=== PATIENT | female | born 1995 | race Caucasian/White ===

== ENCOUNTER 2019-06-26 11:35 | Inpatient (IN) ==
[2019-06-26] MEDS: LACTATED RINGERS 1,000 ML IV SCH ×2 (12:59→15:58)
[2019-06-26 13:32] LABS: Apearance,Urine Slightly Hazy (Clear); Bacteria,Urine Occasional /HPF (Few); Bilirubin,Urine Negative (Negative); Blood, Urine Negative (Negative); Glucose,Urine (UA) Negative (Negative); Ketones,Urine 5 mg/dL (Negative); Mucus,Urine Many /LPF (Occasional); Nitrite,Urine Negative (Negative); Protein,Urine 30 MG/DL; RBC,Urine 4 /HPF (0-4); Squamous Epithelial Cell,Urine Occasional /HPF (0-10); Urine Color Yellow (Yellow); Urine Specific Gravity 1.024 (1.001-1.035); Urine Urobilinogen < 2.0 EU/DL (0.2-1.0); WBC,Urine 1 /HPF (0-6)
[2019-06-26] MEDS ORDERED: NIFEdipine 10 MG CAPSULE PO ONE (13:41)
[2019-06-26] MEDS ORDERED: BETAMETH SODIUM PHOS/ACETATE 30 MG/5 ML VIAL IM SCH (14:00)
[2019-06-26 14:03] LABS: Basophils % 0.2 % (0.0-0.8); Eosinophils # 0.1 10*3/uL (0.0-0.87); Hematocrit 33.6 VOL% (35.7-47.0); Hemoglobin 10.8 GM/DL (12.0-16.0); Immature Granulocytes % 0.7 %; Immature Granulocytes Absolute 0.07 #; Lymphocytes # 2.3 10*3/uL (1.4-4.0); Mean Corpuscular HGB Conc 32.1 GM/DL (32-36); Mean Corpuscular Volume 91.1 FL (87-102); Mean Platelet Volume 9.4 FL (9.6-12.0); Monocytes % 7.8 % (1.7-12.7); Neutrophils % 67.3 % (38.7-73.9); Platelet Count 393 T/CUMM (130-400); Red Blood Count 3.69 MC/CUMM (3.8-5.5); Red Cell Distribution Width 13.6 % (9.3-17.3); White Blood Count 10.2 T/CUMM (4-12)
[2019-06-26 14:21] LABS: Alanine Aminotransferase 15 U/L (13-56); Albumin 2.5 G/DL (3.4-5.0); Alkaline Phosphatase 93 U/L (45-117); Aspartate Amino Transferase 11 U/L (0-37); Bilirubin,Total < 0.39 MG/DL (0.2-1.0); Blood Urea Nitrogen 5 MG/DL (7-18); Calcium 9.1 MG/DL (8.5-10.1); Glucose 87 MG/DL (74-106); Osmolality,Calculated 278.1 MOS/KG (273-304); Total Protein 6.4 G/DL (6.4-8.3); Uric Acid 5.4 MG/DL (2.6-6.0)
[2019-06-26 14:24] LABS: INR 0.9; PT Patient Result 9.9 SECS; Partial Thromboplastin Time 26.1 SECS (0-40)
[2019-06-26] MEDS ORDERED: ceFAZolin 3,000 MG in SYRINGE 1 EACH IV ONE (17:08)
[2019-06-26] MEDS ORDERED: FAMOTIDINE 20 MG/2 ML VIAL IV ONE (17:08)
[2019-06-26] MEDS ORDERED: CITRIC ACID/SODIUM CITRATE 30 ML UDCUP PO ONE (17:08)
[2019-06-26] MEDS ORDERED: MAGNESIUM SULF RIDER 100 ML IV ONE ×2 (17:11→17:20)
[2019-06-26] MEDS ORDERED: MAGNESIUM SULF DRIP 40 GM/1,000 ML ML IV ONE (17:11)
[2019-06-26] MEDS ORDERED: MAGNESIUM SULF DRIP 40 GM/1,000 ML ML IV SCH (17:30)
[2019-06-26] MEDS ORDERED: LACTATED RINGERS 1,000 ML IV SCH (17:30)
[2019-06-26] MEDS: AMPICILLIN INJ 2,000 MG in SODIUM CHLORIDE 0.9% 100 ML IV SCH ×2 (17:50→23:10)
[2019-06-26] MEDS ORDERED: NIFEdipine 10 MG CAPSULE PO SCH (18:00)
[2019-06-26 18:19] LABS: Apearance,Urine CLEAR (Clear); Bilirubin,Urine Negative (Negative); Blood, Urine Negative (Negative); Glucose,Urine (UA) Negative (Negative); Ketones,Urine 20 mg/dL (Negative); Mucus,Urine Occasional /LPF (Occasional); Nitrite,Urine Negative (Negative); Protein,Urine Negative; RBC,Urine <1 /HPF (0-4); Squamous Epithelial Cell,Urine Occasional /HPF (0-10); Urine Color Straw (Yellow); Urine Urobilinogen < 2.0 EU/DL (0.2-1.0)
[2019-06-26] MEDS ORDERED: ONDANSETRON 4 MG/2 ML VIAL IV PRN (21:04)
[2019-06-26] MEDS: BUTORPHANOL 2 MG/ML VIAL IV PRN (21:18)
[2019-06-27] MEDS: BUTORPHANOL 2 MG/ML VIAL IV PRN (00:46)
[2019-06-27] MEDS ORDERED: BETAMETH SODIUM PHOS/ACETATE 30 MG/5 ML VIAL IM SCH (02:15)
[2019-06-27] MEDS: LACTATED RINGERS 1,000 ML IV SCH (02:44)
[2019-06-27] MEDS: AMPICILLIN INJ 2,000 MG in SODIUM CHLORIDE 0.9% 100 ML IV SCH (04:56)
[2019-06-27] MEDS ORDERED: OXYTOCIN/LR 20 UNIT/1,000 ML BAG IV ONE ×2 (08:14→10:00)
[2019-06-27] MEDS ORDERED: CITRIC ACID/SODIUM CITRATE 30 ML UDCUP PO ONE (08:30)
[2019-06-27] MEDS ORDERED: FAMOTIDINE 20 MG/2 ML VIAL IV ONE (08:30)
[2019-06-27] MEDS ORDERED: ceFAZolin 3,000 MG in SYRINGE 1 EACH IV ONE (08:30)
[2019-06-27] MEDS ORDERED: ceFAZolin 1,000 MG in SYRINGE 1 EACH IV SCH (10:00)
[2019-06-27] MEDS ORDERED: LACTATED RINGERS 1,000 ML IV SCH (10:00)
[2019-06-27] MEDS ORDERED: SIMETHICONE CHEW 80 MG TABLET PO PRN (10:00)
[2019-06-27] MEDS ORDERED: ONDANSETRON 4 MG/2 ML VIAL IV PRN (10:00)
[2019-06-27] MEDS ORDERED: ACETAMINOPHEN 325 MG TABLET PO PRN (10:00)
[2019-06-27] MEDS ORDERED: RHO(D) IMMUNE GLOBULIN 300 MCG SYRINGE IM ONE (10:00)
[2019-06-27] MEDS ORDERED: MORPHINE 10 MG/10 ML VIAL ONE (10:54)
[2019-06-27] MEDS ORDERED: BUPIVACAINE 0.5% 50 ML VIAL ONE (10:55)
[2019-06-27] MEDS ORDERED: EPINEPHrine 1 MG/ML VIAL ONE (10:55)
[2019-06-27] MEDS ORDERED: BUPIVACAINE SPINAL 0.75% 2 ML AMP SPINAL ONE (10:55)
[2019-06-27] MEDS ORDERED: LACTATED RINGERS 1,000 ML IV ONE (10:56)
[2019-06-27] MEDS ORDERED: DEXAMETHASONE 4 MG/1 ML VIAL ONE (10:56)
[2019-06-27] MEDS ORDERED: ONDANSETRON 4 MG/2 ML VIAL ONE (10:56)
[2019-06-27] MEDS ORDERED: LIDOCAINE 1% 5 ML VIAL ONE (10:56)
[2019-06-27] MEDS ORDERED: PHENYLEPHRINE 1 MG/10 ML SYRINGE IV ONE (10:56)
[2019-06-27] MEDS: ceFAZolin 1,000 MG in SYRINGE 1 EACH IV SCH (18:31)
[2019-06-27 19:26] LABS: Basophils % 0.1 % (0.0-0.8); Hematocrit 28.4 VOL% (35.7-47.0); Hemoglobin 9.3 GM/DL (12.0-16.0); Immature Granulocytes % 1.2 %; Immature Granulocytes Absolute 0.21 #; Lymphocytes # 1.6 10*3/uL (1.4-4.0); Lymphocytes % 9.3 % (21.3-54.2); Mean Corpuscular HGB Conc 32.7 GM/DL (32-36); Mean Corpuscular Volume 91.6 FL (87-102); Mean Platelet Volume 9.9 FL (9.6-12.0); Monocytes % 7.3 % (1.7-12.7); Neutrophils % 82.1 % (38.7-73.9); Platelet Count 414 T/CUMM (130-400)
[2019-06-27 19:28] LABS: White Blood Count 17.6 T/CUMM (4-12)
[2019-06-27] MEDS: DOCUSATE SODIUM 100 MG CAPSULE PO SCH (21:44)
[2019-06-28] MEDS: ceFAZolin 1,000 MG in SYRINGE 1 EACH IV SCH (01:51)
[2019-06-28 05:36] LABS: Basophils % 0.2 % (0.0-0.8); Hematocrit 27.8 VOL% (35.7-47.0); Hemoglobin 8.5 GM/DL (12.0-16.0); Immature Granulocytes % 0.9 %; Immature Granulocytes Absolute 0.12 #; Lymphocytes # 2.2 10*3/uL (1.4-4.0); Lymphocytes % 17.2 % (21.3-54.2); Mean Corpuscular HGB Conc 30.6 GM/DL (32-36); Mean Corpuscular Volume 95.5 FL (87-102); Mean Platelet Volume 9.8 FL (9.6-12.0); Monocytes % 8.1 % (1.7-12.7); Neutrophils % 73.6 % (38.7-73.9); Platelet Count 349 T/CUMM (130-400); Red Blood Count 2.91 MC/CUMM (3.8-5.5); Red Cell Distribution Width 13.9 % (9.3-17.3); White Blood Count 12.9 T/CUMM (4-12)
[2019-06-28] MEDS: IBUPROFEN 800 MG TABLET PO PRN (06:05)
[2019-06-28] MEDS: MULTIVITAMIN (PRENATAL) TABLET PO SCH (08:56)
[2019-06-28] MEDS: DOCUSATE SODIUM 100 MG CAPSULE PO SCH ×2 (08:56→21:14)
[2019-06-28] MEDS: MAGNESIUM HYDROXIDE SUSP 30 ML UDCUP PO PRN ×2 (08:57→21:14)
[2019-06-29] MEDS: MAGNESIUM HYDROXIDE SUSP 30 ML UDCUP PO PRN (09:50)
[2019-06-29] MEDS: MULTIVITAMIN (PRENATAL) TABLET PO SCH (09:51)
[2019-06-29] MEDS: DOCUSATE SODIUM 100 MG CAPSULE PO SCH ×2 (09:51→21:41)
[2019-06-29] MEDS: IBUPROFEN 800 MG TABLET PO PRN ×2 (16:27→23:55)
[2019-06-30 07:24] VITALS: BP 134/76
[2019-06-30] MEDS: DOCUSATE SODIUM 100 MG CAPSULE PO SCH (09:02)
[2019-06-30] MEDS ORDERED: DIPH/TET/ACEL PERT BOOSTER VACCINE 0.5 ML VIAL IM ONE (10:54)
== END 2019-06-30 14:20 | disposition home or self-care (01) | DRG 786 ==
LOC: N.LDOUT 11:35 → N.LD 11:38 → N.OB 06-27 13:30
PROVIDERS: ADMIT Obstetrics & Gynecology; ATTEND Obstetrics & Gynecology
PROC: LDCSECT (ICD-10-PCS; 2019-06-27 08:30)